=== PATIENT | female | born 1975 | race Caucasian/White ===

== ENCOUNTER 2017-05-09 12:28 | Outpatient (CLI) | payer OTHER ==
--- NOTE | 2017-05-10 04:55 | Ultrasound Report ---
EXAM: ABDOMEN ULTRASOUND LIMITED, RUQ EXAM DATE: 05/09/2017 05:39 PM. CLINICAL HISTORY: LIVER FUNCTION TESTS, ABNORMAL. COMPARISON: None. TECHNIQUE: Real-time scanning was performed with static images obtained. FINDINGS: Liver: Echogenic. 11.7 cm. Main portal vein flow: Hepatopetal. Gallbladder: Possible phrygian cap. No stones, wall thickening, or sonographic Cope's sign. Biliary System: CBD measures 1.6 mm. No intrahepatic or extrahepatic ductal dilatation. Other: Right kidney measures 10.3 cm. No hydronephrosis seen. IMPRESSION: 1. No cholelithiasis or cholecystitis identified. 2. No biliary dilatation seen. 3. Fatty liver. [facility] Referring Provider Line: [phone] SITE ID: [id number]
== END 2017-05-09 12:29 | disposition home or self-care (01) ==
LOC: DI 12:28
PROVIDERS: ATTEND Family Medicine
DX: K76.0 Fatty (change of) liver, not elsewhere classified (principal)
CPT/HCPCS: 76705

== ENCOUNTER 2017-08-16 19:15 | Emergency (ER) | payer OTHER ==
--- NOTE | 2017-08-16 20:05 | ED Physician Documentation ---
PD HPI URI - Stated complaint Stated Complaint: COUGH/SOA - Chief complaint Chief Complaint: Resp - History obtained from History obtained from: Patient - History of Present Illness Timing - onset: Yesterday (has had some cough for several days then worse yesterday with myalgias, fever, cough productive yellow sputum, and marked wheezing. Improved some with MDI albuterol. Feeling worse wheezing this evening. ) Timing duration: Days Timing details: Gradual onset, Still present Associated symptoms: Fever, Chills, Rhinorrhea, Productive cough, Dyspnea. No: Sore throat, Swollen nodes, Hemoptysis, NVD, Bilateral edema Contributing factors: COPD / asthma. No: Sick contact, Travel, Immunocompromised Similar symptoms before: Diagnosis (bronchitis and pneumonia) Recently seen: Not recently seen Review of Systems Constitutional: reports: Fever, Chills, Myalgias, Fatigue Nose: reports: Congestion Throat: denies: Sore throat Cardiac: reports: Chest pain / pressure (central pressure, feeling tight to breath.) Respiratory: reports: Dyspnea, Cough, Wheezing GI: denies: Nausea, Vomiting, Diarrhea : denies: Dysuria, Frequency Musculoskeletal: denies: Extremity pain, Extremity swelling Neurologic: reports: Generalized weakness. denies: Focal weakness, Numbness, Near syncope Endocrine: denies: Weight loss Immunocompromised: denies: Immunocompromised PD PAST MEDICAL HISTORY - Past Medical History Past Medical History: Yes Cardiovascular: None Respiratory: Asthma - Past Surgical History Past Surgical History: No - Present Medications Home Medications: Ambulatory Orders Medication Instructions Recorded Confirmed Albuterol 2.5 mg INH Q4H PRN #30 neb 08/16/17 Dexamethasone [Decadron] 4 mg PO BID #10 tablet 08/16/17 Doxycycline Hyclate 100 mg PO BID #14 tablet 08/16/17 guaiFENesin/CODEINE [Robitussin AC] 10 ml PO Q6H PRN #240 ml 08/16/17 - Allergies Allergies/Adverse Reactions: Allergies Allergy/AdvReac Type Severity Reaction Status Date / Time shrimp Allergy Anaphylaxis Verified 08/16/17 19:26 - Social History Does the pt smoke?: No Smoking Status: Never smoker PD ED PE NORMAL - Vitals Vital signs reviewed: Yes - General General: Alert and oriented X 3, No acute distress, Well developed/nourished, Other (has persistent and audible wheezing. No accessory muscle use but talks in mostly complete sentences. ) - HEENT HEENT: Ears normal, Pharynx benign - Neck Neck: Supple, no meningeal sign, No adenopathy, No JVD, No bruit - Cardiac Cardiac: RRR, No murmur, No rub - Respiratory Respiratory: Other (no coarse sounds but has tight wheezing and diminished tidal volume disffusely. No fine crackles. No pedal edema. ) - Abdomen Abdomen: Soft, Non tender - Derm Derm: Normal color, Warm and dry, No rash - Extremities Extremities: No tenderness to palpate, Normal ROM s pain, No edema, No calf tenderness / cord - Neuro Neuro: Alert and oriented X 3, No motor deficit, Normal speech Results - Vitals Vitals: Oxygen O2 Source Room air - EKG (time done) 21:38 Rate: Rate (enter#) (122) Rhythm: Sinus tachycardia Elmo: Normal Intervals: Normal MD QRS: Normal Ischemia: Normal ST segments. No: ST elevation c/w ischemia, ST elevation c/w repol, ST depression, T wave inversion Compare to prior EKG: Old EKG unavailable - Rads (name of study) chest xray Radiology: Prelim report reviewed, EMP read contemporaneously (no infiltrates) PD MEDICAL DECISION MAKING - ED course Complexity details: reviewed results, considered differential (she remains tachycardic but is breathing easier after several nebs and feels better. She had taken albuterol [employer] and I think that and nebs are contributing to her heart rate. No murmur and ECG is okay, so does not seem pericardial. has had some cough and now with worse cough, fevers, and sputum. Consider bacterial transformation. ), d/w patient Departure - Departure Disposition: 01 Home, Self Care Clinical Impression: Asthma Qualifiers: Asthma severity: mild intermittent Asthma complication type: with acute exacerbation Qualified Code(s): J45.21 - Mild intermittent asthma with (acute) exacerbation Upper respiratory tract infection Qualifiers: URI type: unspecified URI Qualified Code(s): J06.9 - Acute upper respiratory infection, unspecified Condition: Stable Record reviewed to determine appropriate education?: Yes Instructions: ED Upper Resp Infec Abx Tx, ED Bronchitis Asthmatic Follow-Up: Jazmine Choe DO [Primary Care Provider] - Prescriptions: Albuterol 2.5 mg INH Q4H PRN #30 neb PRN Reason: Wheezing Dexamethasone [Decadron] 4 mg PO BID #10 tablet Doxycycline Hyclate 100 mg PO BID #14 tablet guaiFENesin/CODEINE [Robitussin AC] 10 ml PO Q6H PRN #240 ml PRN Reason: Cough Comments: Use your Albuterol nebulizer 4 times daily for the next few days, and extra as needed. Doxycycline Antibiotic and Decadron steroid as directed twice daily. Add codeine cough medicine if needed. Recheck if not improved within a day or 2 and return sooner if worse. Discharge Date/Time: 08/16/17 22:21
[2017-08-16] MEDS ORDERED: ALBUTEROL NEB 2.5 MG/3 ML INH STA ×2 (20:12→20:13)
[2017-08-16] MEDS ORDERED: DEXAMETHASONE 10 MG/ML VIAL PO STA (20:13)
[2017-08-16] MEDS ORDERED: BENZONATATE 100 MG CAPSULE PO STA (20:13)
[2017-08-16] MEDS ORDERED: ACETAMINOPHEN 325 MG TABLET PO STA (20:13)
[2017-08-16] MEDS ORDERED: DEXAMETHASONE 10 MG/ML VIAL IVP STA (20:14)
[2017-08-16] MEDS ORDERED: IPRATROPIUM/ALBUTEROL 3 ML NEB INH ONE (20:21)
[2017-08-16] MEDS ORDERED: DEXAMETHASONE 10 MG/ML VIAL ONE (20:21)
[2017-08-16] MEDS ORDERED: ACETAMINOPHEN 325 MG TABLET PO ONE (20:21)
[2017-08-16] MEDS ORDERED: BENZONATATE 100 MG CAPSULE PO ONE (20:22)
[2017-08-16] MEDS ORDERED: ALBUTEROL NEB 2.5 MG/3 ML INH ONE (20:26)
[2017-08-16] MEDS ORDERED: IPRATROPIUM/ALBUTEROL 3 ML NEB INH STA (21:18)
[2017-08-16] MEDS ORDERED: DOXYCYCLINE 100 MG TABLET PO STA (21:18)
--- NOTE | 2017-08-16 21:23 | XRAY Preliminary Report ---
Exam: XR Chest 2 View PA/LAT IMPRESSION: Normal 2-view chest radiography. [facility] SITE ID: [id number]
--- NOTE | 2017-08-16 21:26 | XRAY Report ---
EXAM: CHEST RADIOGRAPHY EXAM DATE: 08/16/2017 08:48 PM. CLINICAL HISTORY: Cough and wheezing. COMPARISON: 12/20/2008. TECHNIQUE: 2 views. FINDINGS: Lungs/Pleura: Normal volumes. No focal consolidation or evidence of edema. No pleural effusion or pne umothorax. Mediastinum: Normal cardiomediastinal contour. Other: The bones are normal. IMPRESSION: Normal 2-view chest radiography. [facility] Referring Provider Line: [phone] SITE ID: [id number]
[2017-08-16] MEDS ORDERED: DOXYCYCLINE 100 MG TABLET PO ONE (21:27)
[2017-08-16] MEDS ORDERED: guaiFENesin/CODEINE 5 ML UDC PO STA (21:59)
[2017-08-16 22:14] VITALS: BP 102/65
[2017-08-16] MEDS ORDERED: guaiFENesin/CODEINE 5 ML UDC ONE (22:16)
== END 2017-08-16 22:21 | disposition home or self-care (01) ==
LOC: ED 19:15
DX: J45.21 Mild intermittent asthma with (acute) exacerbation (principal); J06.9 Acute upper respiratory infection, unspecified
CPT/HCPCS: 71020; 93005; 96374; 99283; 99284; A9270; J7613; J7620

== ENCOUNTER 2020-09-11 17:05 | Outpatient (CLI) | payer OTHER | END 2020-09-11 17:06 | disposition home or self-care (01) | LOC: COV 17:05 | PROVIDERS: ATTEND Family Medicine | DX: R06.02 Shortness of breath (principal); Z20.828 Contact with and (suspected) exposure to other viral communicable diseases ==